=== PATIENT | female | born 1940 | race Caucasian/White ===

== ENCOUNTER 2020-11-24 10:23 | Emergency (ER) | payer OTHER, MEDICAID ==
[~2020-11-24] VITALS: Ht 147.3 cm; Wt 67.1 kg
[2020-11-24 10:30] VITALS: BP 118/71
--- NOTE | 2020-11-24 10:35 | NUR ---
Patient ambulated to bed 04 with steady/even gait, accompanied by daughter, Rhiannon.
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
--- NOTE | 2020-11-24 10:50 | NUR ---
Dr. Diaz is evaluating patient at bedside.
[2020-11-24] MEDS ORDERED: ONDANSETRON 4 MG/2 ML VIAL IVP ONE (11:20)
[2020-11-24] MEDS ORDERED: MORPHINE SULFATE 2 MG/ML SYR IVP ONE (11:20)
--- NOTE | 2020-11-24 11:30 | NUR ---
Lab at bedside for blood draw.
--- NOTE | 2020-11-24 11:37 | NUR ---
Consent form signed for CT Angio Chest/Abd/Pelvis. Daughter at bedside for assistance with translation.
[2020-11-24 11:47] LABS: BASOPHILS % (AUTO) 0.6 % (0.0-2.0); EOSINOPHILS # (AUTO) 0.1 K/uL (0-0.4); EOSINOPHILS % (AUTO) 1.2 % (0.0-4.0); HEMATOCRIT 43.6 % (36-48); HEMOGLOBIN 14.4 g/dL (12.0-16.0); LYMPHOCYTES # (AUTO) 1.8 K/uL (2.5-16.5); LYMPHOCYTES % (AUTO) 33.9 % (20.5-51.1); MEAN CORPUSCULAR HEMOGLOBIN 31 pg (27-31); MEAN CORPUSCULAR HGB CONC 33 g/dL (33-37); MEAN CORPUSCULAR VOLUME 93.2 fL (80-94); MONOCYTES # (AUTO) 0.5 K/uL (0.8-1.0); MONOCYTES % (AUTO) 8.5 % (1.7-9.3); NEUTROPHILS % (AUTO) 55.8 % (42.2-75.2); PLATELET COUNT (AUTO) 269 K/uL (140-450); RED BLOOD CELL COUNT(AUTO) 4.67 MIL/uL (4.20-5.40); RED CELL DISTRIBUTION WIDTH 14.2 % (11.6-13.7); WHITE BLOOD COUNT (AUTO) 5.3 K/uL (4.8-10.8)
[2020-11-24 12:09] LABS: ANION GAP 11.9 (8-16); ASPARTATE AMINOTRANSFERASE 15 U/L (15-37); CARBON DIOXIDE 25.9 mmol/L (21-32); CHLORIDE 105 mmol/L (98-107); CREATININE 0.8 mg/dL (0.6-1.3); GLUCOSE 144 mg/dL (74-106); POTASSIUM 3.8 mmol/L (3.5-5.1); SODIUM SERUM 139 mmol/L (136-145); TOTAL BILIRUBIN 0.4 mg/dL (0.0-1.0); UREA NITROGEN, BLOOD 13 mg/dL (7-18)
[2020-11-24 12:30] LABS: PROTHROMBIN TIME 9.9 secs (10.8-13.4)
--- NOTE | 2020-11-24 12:30 | NUR ---
boiler service technician at bedside advised of possible infiltration. Patient states pain upon NS 0.9% flush. IV discontinued and new IV initiated.
--- NOTE | 2020-11-24 12:48 | NUR ---
CT contacted advised of new IV started.
--- NOTE | 2020-11-24 13:00 | NUR ---
Pt to CT via gurney; IV checked by tech and patent.
--- NOTE | 2020-11-24 13:15 | NUR ---
PT returned from CT via gurney and placed back onto monitoring tech. Daughter remains at bedside.
--- NOTE | 2020-11-24 13:45 | NUR ---
Dr. Diaz is reevaluating patient at bedside.
[2020-11-24 13:55] VITALS: BP 126/68
--- NOTE | 2020-11-24 13:55 | NUR ---
Patient discharged with v/s stable. Written and verbal after care instructions given and explained. Patient verbalized understanding. Ambulatory with steady gait. All questions addressed prior to discharge. Advised to follow up with PMD. With daughter upon discharge.
== END 2020-11-24 13:55 | disposition home or self-care (01) ==
LOC: MED 10:23
DX: S20.211A Contusion of right front wall of thorax, initial encounter (principal); S30.1XXA Contusion of abdominal wall, initial encounter; S16.1XXA Strain of muscle, fascia and tendon at neck level, initial encounter; K44.9 Diaphragmatic hernia without obstruction or gangrene; M47.892 Other spondylosis, cervical region; I10 Essential (primary) hypertension; E07.9 Disorder of thyroid, unspecified; Z79.899 Other long term (current) drug therapy; V89.2XXA Person injured in unspecified motor-vehicle accident, traffic, initial encounter; Y93.89 Activity, other specified; Y92.89 Other specified places as the place of occurrence of the external cause; Y99.8 Other external cause status
CPT/HCPCS: 36415; 71275; 72125; 74174; 80053; 84484; 85025; 85610; 85730; 96374; 96375; 99285; J2270; J2405; Q9967; 93005